=== PATIENT | male | born 1990 | race African-American/Black ===

== ENCOUNTER 2022-10-16 09:52 | Emergency (ER) | payer MEDICAID ==
[~2022-10-16] VITALS: Ht 175.3 cm; Wt 90.3 kg
[2022-10-16 09:59] VITALS: BP 127/93
--- NOTE | 2022-10-16 10:28 | NUR ---
PT AMB TO BED 1
[2022-10-16] MEDS ORDERED: cefTRIAXone 500 MG in LIDOCAINE 1% 1 ML INJ ONE (10:40)
[2022-10-16] MEDS ORDERED: LIDOCAINE MPF 1% 5 ML ONE (10:54)
[2022-10-16] MEDS ORDERED: cefTRIAXone 500 MG VIAL ONE (10:54)
[2022-10-16] MEDS ORDERED: PENICILLIN G BENZATHINE L-A 1.2 MU/2 ML SYR IM ONE ×2 (10:55→11:19)
--- NOTE | 2022-10-16 11:11 | NUR ---
HERE FOR ITCHING, RASH AT [facility], NO PAIN, PT CALM AND COOPERATIVE
[2022-10-16 11:20] LABS: APPEARANCE,URINE CLEAR (CLEAR); BILIRUBIN,URINE NEGATIVE (NEGATIVE); BLOOD, URINE TRACE-I (NEGATIVE); COLOR,URINE YELLOW (YELLOW); LEUKOCYTE ESTERASE ,URINE TRACE (NEGATIVE); NITRITE, URINE NEGATIVE (NEGATIVE); UGLUCOSE NEGATIVE (NEGATIVE)
--- NOTE | 2022-10-16 11:30 | NUR ---
PT SEEN WALKING OUT OF ER. PATIENT ELOPED FROM FACILITY. DISCHARGE INSTRUCTIONS NOT GIVEN TO PATIENT. AMADO ORTEGA NOTIFIED.
[2022-10-16] MEDS ORDERED: DOXY-745 PO (11:31)
[2022-10-16 11:39] LABS: RBC,URINE NONE SEEN /HPF (0-5)
--- NOTE | 2022-10-16 11:40 | NUR ---
PT WALKED AWAY FROM ROOM, DID NOT RESPOND WHEN CALLED, DID NOT RECEIVE BICILLIN IM SHOTS
[2022-10-16] MEDS ORDERED: LOTC TP (11:48)
== END 2022-10-16 11:30 | disposition left against medical advice (07) ==
LOC: MED 09:52
DX: B35.6 Tinea cruris (principal); Z11.3 Encounter for screening for infections with a predominantly sexual mode of transmission; Z72.51 High risk heterosexual behavior; Z79.899 Other long term (current) drug therapy; Z79.2 Long term (current) use of antibiotics
CPT/HCPCS: 81001; 86592; 86703; 87491; 96372; 99283; J0696; J2001; J0561